=== PATIENT | male | born 1930 | race Caucasian/White ===

== ENCOUNTER 2017-04-28 07:02 | Day surgery (SDC) | payer OTHER ==
[2017-04-28 07:48] VITALS: BMI 20.7
[2017-04-28] MEDS ORDERED: PROPOFOL 20 ML ONE ×3 (07:51)
[2017-04-28] MEDS ORDERED: LIDOCAINE HCL 2% (20ML MULTI-DOSE VIAL) NR ONE (07:51)
[2017-04-28] MEDS ORDERED: ePHEDrine SULFATE 50 MG/1 ML AMPULE ONE (07:51)
[2017-04-28 09:51] VITALS: TEMP 98
[2017-04-28 10:27] VITALS: BP 150/63; PULSE 67
--- NOTE | 2017-05-01 16:04 | PATH ---
Surgical Pathology Report Patient Name: MOHINDER ARREDONDO [facility]. Rec. #: [id number] /Age/Gender: 1930 (Age: 86) / M Account: [id number] Location: U-ENDOSCOPY Taken: 04/28/2017 Received: 04/28/2017 Reported: 05/01/2017 Physicians: Mary Morley M.D. 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 DUODENUM, SECOND PORTION AND DUODENAL BULB, BIOPSY: DUODENAL MUCOSA WITHOUT SIGNIFICANT PATHOLOGIC FINDINGS. B. STOMACH, ANTRUM, BIOPSY: GASTRIC ANTRAL MUCOSA WITH MILD CHRONIC GASTRITIS. IMMUNOHISTOCHEMICAL STAIN FOR H. PYLORI IS NEGATIVE. C. DISTAL ESOPHAGUS, BIOPSY: SQUAMOUS MUCOSA WITH MARKED ACUTE ESOPHAGITIS AND REACTIVE CHANGES IN A BACKGROUND OF REFLUX TYPE CHANGES. GMS FUNGAL STAIN IS NEGATIVE. D. DESCENDING COLON, POLYP, BIOPSY: TUBULAR ADENOMA. E. PROXIMAL TRANSVERSE COLON, BIOPSY: INVASIVE ADENOCARCINOMA, MODERATELY DIFFERENTIATED. SEE COMMENT. F. RECTUM, POLYP, BIOPSY: TUBULAR ADENOMA. Comment: Additional studies for Mismatch repair proteins (MMR) are pending and will be reported separately as an addendum. Findings discussed with Dr. Morley. Electronically Signed Charley Cruz M.D. Addendum Reported: 05/03/2017 Addendum Diagnosis Immunohistochemical stains for MisMatch Repair Protein Analysis performed at [facility] in [place], [place] ([id number]) and interpreted at [facility] show the following: RESULTS: HMLH-1 LOSS OF NUCLEAR EXPRESSION HMSH-2 INTACT NUCLEAR EXPRESSION HMSH-6 INTACT NUCLEAR EXPRESSION PMS2 LOSS OF NUCLEAR EXPRESSION INTERPRETATION: Loss of nuclear expression of MLH1 and PMS2. Additional test for BRAF mutation pending and findings will be reported separately as an addendum. Charley Cruz M.D. Gross Description A. Received in formalin, labeled "biopsy second portion of duodenum and duodenal bulb" are 2 carrillo, irregular portions of soft tissue measuring 0.2 and 0.3 cm. in greatest dimension. The specimens are submitted in toto in one cassette. B. Received in formalin, labeled "biopsy antrum" are 3 carrillo, irregular portions of soft tissue ranging from 0.1-0.3 cm. in greatest dimension. The specimens are submitted in toto in one cassette. C. Received in formalin, labeled "biopsy distal esophagus" are 4 carrillo, irregular portions of soft tissue ranging from 0.1-0.3 cm. in greatest dimension. The specimens are submitted in toto in one cassette. D. Received in formalin, labeled "polyp descending colon" is a carrillo, irregular portion of soft tissue measuring 0.5 cm. in greatest dimension. The specimen is submitted in toto in one cassette. E. Received in formalin, labeled "biopsy proximal transverse colon cancer" are 6 carrillo, irregular portions of soft tissue ranging from 0.2-0.3 cm. in greatest dimension. The specimens are submitted in toto in one cassette. F. Received in formalin, labeled "polyp rectum" is a carrillo, irregular portion of soft tissue measuring 0.4 cm. in greatest dimension. The specimen is submitted in toto in one cassette. 04/28/2017 saudi04/28/2017
== END 2017-04-28 10:35 | disposition home or self-care (01) ==
LOC: JASU-ENDO 07:02
PROVIDERS: ATTEND Internal Medicine Gastroenterology
PROC: 0DBP8ZX Excision of Rectum, Via Natural or Artificial Opening Endoscopic, Diagnostic (ICD-10-PCS; 2017-04-28)
PROC: 0DBL8ZX Excision of Transverse Colon, Via Natural or Artificial Opening Endoscopic, Diagnostic (ICD-10-PCS; 2017-04-28)
PROC: 3E0H8GC Introduction of Other Therapeutic Substance into Lower GI, Via Natural or Artificial Opening Endoscopic (ICD-10-PCS; 2017-04-28)
PROC: 0DB98ZX Excision of Duodenum, Via Natural or Artificial Opening Endoscopic, Diagnostic (ICD-10-PCS; 2017-04-28)
PROC: 0DB68ZX Excision of Stomach, Via Natural or Artificial Opening Endoscopic, Diagnostic (ICD-10-PCS; 2017-04-28)
PROC: 0DB48ZX Excision of Esophagogastric Junction, Via Natural or Artificial Opening Endoscopic, Diagnostic (ICD-10-PCS; 2017-04-28)
PROC: 0DBM8ZX Excision of Descending Colon, Via Natural or Artificial Opening Endoscopic, Diagnostic (ICD-10-PCS; principal; 2017-04-28 08:00)
DX: C18.4 Malignant neoplasm of transverse colon (principal); D12.4 Benign neoplasm of descending colon; D12.8 Benign neoplasm of rectum; K57.30 Diverticulosis of large intestine without perforation or abscess without bleeding; K64.8 Other hemorrhoids; K40.90 Unilateral inguinal hernia, without obstruction or gangrene, not specified as recurrent; K29.50 Unspecified chronic gastritis without bleeding; K21.0 Gastro-esophageal reflux disease with esophagitis; K44.9 Diaphragmatic hernia without obstruction or gangrene; K22.70 Barrett's esophagus without dysplasia; K22.2 Esophageal obstruction
CPT/HCPCS: 88305-TC; 88342-TC

== ENCOUNTER 2017-07-31 08:24 | Inpatient (IN) | payer OTHER ==
[2017-07-31 08:38] VITALS: BMI 21.1
[2017-07-31] MEDS ORDERED: PANTOPRAZOLE SODIUM 40 MG in SODIUM CHLORIDE 100 ML IVPB ONE (08:40)
[2017-07-31] MEDS ORDERED: SODIUM CHLORIDE 500 ML IV STA (08:40)
--- NOTE | 2017-07-31 08:40 | PDOC ---
History of Present Illness - General Chief Complaint: Vomiting Blood Stated Complaint: VOMITING BLOOD Time Seen by Provider: 07/31/17 08:39 - History of Present Illness Initial Comments: 07/31/17 09:13 Mr. Colorado is an 86 yo male w/ pmh of colon cancer s/p resection 2 months ago and BPH who presents c/o a 1 day history of vomiting dark liquid. Per daughter who is with him this began last night - they delayed presentation as he did not want to come in initially. He reports vague abdominal pain last night although he currently feels improved without nausea. He has vomited several times last night and this morning. Patient has been in his usual state of health although daughter reports he has had increasing weakness over the last few months. The patient denies chest pain, shortness of breath, headache and dizziness. Denies fever, chills, diarrhea and constipation. Denies dysuria, frequency, urgency and hematuria. Allergies: ASA; NSAIDS Past History - Past Medical History Allergies/Adverse Reactions: Allergies Allergy/AdvReac Type Severity Reaction Status Date / Time aspirin Allergy Verified 02/04/15 16:33 NSAIDS (Non-Steroidal AdvReac Severe Verified 04/28/17 07:57 Anti-Inflamma Home Medications: Ambulatory Orders Atorvastatin Ca [Lipitor -] 10 mg PO DAILY 02/04/15 Ascorbate Calcium [Vitamin C] 500 mg PO DAILY 04/28/17 Cholecalciferol (Vitamin D3) [Vitamin D3 -] 400 unit PO DAILY 04/28/17 Nena 2 each PO PRN PRN 04/28/17 Mag Carb/Aluminum Hydrox/Algin [Gaviscon Liquid] 355 ml PO Q4H PRN #0 oral.susp 04/28/17 Multivitamin with Iron [Multivitamins with Iron] 1 tab PO DAILY 04/28/17 Ondansetron [Zofran -] 4 mg PO PRN PRN 04/28/17 Pantoprazole Sodium [Protonix -] 40 mg PO DAILY #30 tablet.ec 04/28/17 Polyethylene Glycol 3350 [Miralax 255 gm Btl] 17 gm PO DAILY #1 bottle 04/28/17 Vitafusion Gummies 1 each PO PRN 04/28/17 Metoclopramide HCl [Reglan -] 10 mg PO DAILY 07/31/17 Anemia: No Asthma: No Cancer: No Cardiac Disorders: Yes (H/O LEFT BBB) CVA: No COPD: No CHF: No Dementia: No Diabetes: No GI Disorders: Yes (DIVERTICULOSIS, COLON POLYPS/ADENOMA) Disorders: Yes (BPH) HTN: No Hypercholesterolemia: Yes Liver Disease: No Seizures: No Thyroid Disease: No - Surgical History Abdominal Surgery: No Appendectomy: No Cardiac Surgery: No Cholecystectomy: No Lung Surgery: No Neurologic Surgery: No Orthopedic Surgery: Yes (LAMENECTOMY/DISCECTOMY) - Suicide/Smoking/Psychosocial Hx Smoking History: Never smoked Have you smoked in the past 12 months: No If you are a former smoker, when did you quit?: 50 YEARS Information on smoking cessation initiated: No Hx Alcohol Use: No Drug/Substance Use Hx: No Substance Use Type: None Hx Substance Use Treatment: No Review of Systems - Review of Systems Comments:: 07/31/17 09:22 GENERAL/CONSTITUTIONAL: No fever or chills. No weakness. HEAD, EYES, EARS, NOSE AND THROAT: No change in vision. No ear pain or discharge. No sore throat. CARDIOVASCULAR: No chest pain or shortness of breath RESPIRATORY: No cough, wheezing, or hemoptysis. GASTROINTESTINAL: +Nausea with multiple episodes of vomiting dark liquid/blood. No diarrhea or constipation. GENITOURINARY: No dysuria, frequency, or change in urination. MUSCULOSKELETAL: No joint or muscle swelling or pain. No neck or back pain. SKIN: No rash NEUROLOGIC: No headache, vertigo, loss of consciousness, or change in strength/ sensation. ENDOCRINE: No increased thirst. No abnormal weight change HEMATOLOGIC/LYMPHATIC: No anemia, easy bleeding, or history of blood clots. ALLERGIC/IMMUNOLOGIC: No hives or skin allergy. *Physical Exam - Vital Signs Last Vital Signs Temp Pulse Resp BP Pulse Ox 98.5 F 103 H 16 116/85 93 L 07/31/17 08:34 07/31/17 08:34 07/31/17 08:34 07/31/17 08:34 07/31/17 08:34 - Physical Exam Comments: 07/31/17 09:23 GENERAL: Awake, alert, and fully oriented, in no acute distress. Gomez catheter in place. HEAD: No signs of trauma, normocephalic, atraumatic EYES: PERRLA, EOMI, sclera anicteric, conjunctiva clear ENT: +Black scant coffee ground like material noted to back of throat. Auricles normal inspection, hearing grossly normal, nares patent, oropharynx clear without exudates. Moist mucosa NECK: Normal ROM, supple, no lymphadenopathy, JVD, or masses LUNGS: No distress, speaks full sentences, clear to auscultation bilaterally HEART: Regular rate and rhythm, normal S1 and S2, no murmurs, rubs or gallops, peripheral pulses normal and equal bilaterally. ABDOMEN: Soft, nontender, normoactive bowel sounds. No guarding, no rebound. No masses EXTREMITIES: Normal inspection, Normal range of motion, no edema. No clubbing or cyanosis. NEUROLOGICAL: Cranial nerves II through XII grossly intact. Normal speech, normal gait, no focal sensorimotor deficits SKIN: Warm, Dry, normal turgor, no rashes or lesions noted. ED Treatment Course - LABORATORY CBC & Chemistry Diagram: 07/31/17 09:05 07/31/17 09:05 Medical Decision Making - Medical Decision Making 07/31/17 09:24 Mr. Colorado is an 86 yo male w/ known history of colon cancer and BPH who presents with nausea and coffee ground emesis. Fecal occult blood positive. GI bleed protocol started. 07/31/17 10:05 GI Consulted (Peyman). Patient's lactate noted to be elevated to 2.4. 1L NS given. 07/31/17 10:[address] Morley who recommends admission for further workup with fluid resuscitation only. Discussed H/H of 8.9/26.4 and will hold off on transfusion as patient is currently stable. Patient placed on protonix drip and admitted to Dr. Potter for further care. *DC/Admit/Observation/Transfer Diagnosis at time of Disposition: GI bleed Qualifiers: GI bleed type/associated pathology: unspecified gastrointestinal hemorrhage type Qualified Code(s): K92.2 - Gastrointestinal hemorrhage, unspecified - Discharge Dispostion Admit: Yes - Referrals - Patient Instructions - Post Discharge Activity
[2017-07-31] MEDS ORDERED: ONDANSETRON 4 MG/2 ML VIAL IVPUSH ONE (08:50)
[2017-07-31 09:16] LABS: HEMATOCRIT 26.4 % (35.4-49); HEMOGLOBIN 8.9 GM/dL (11.7-16.9); MCH 30.3 pg (25.7-33.7); MCHC 33.6 g/dl (32.0-35.9); MEAN PLT VOLUME 7.5 fl (7.5-11.1); PLATELET COUNT 318 K/MM3 (134-434); RBC 2.94 M/mm3 (4.00-5.60); RDW 20.3 % (11.9-15.9); WHITE BLOOD COUNT 8.3 K/mm3 (4.0-10.0)
[2017-07-31 09:27] LABS: INR 1.31 (0.82-1.09); PROTHROMBIN TIME (PATIENT) 14.8 SEC (9.98-11.88)
[2017-07-31] MEDS ORDERED: ONDANSETRON 4 MG/2 ML VIAL ONE (09:27)
[2017-07-31] MEDS ORDERED: PANTOPRAZOLE SODIUM 40 MG VIAL ONE (09:27)
[2017-07-31] MEDS ORDERED: ACETAMINOPHEN 1000 MG/100 ML VIAL (NON FORMULARY) IVPB ONE (09:27)
[2017-07-31] MEDS ORDERED: ACETAMINOPHEN INJECTION 100 ML IVPB ONE (09:27)
[2017-07-31 09:34] LABS: VENOUS PC02 35.9 mmHg (38-52); VENOUS PH 7.42 (7.32-7.42); VENOUS PO2 28.4 mmHg (28-48)
[2017-07-31 09:38] LABS: ALBUMIN 2.2 g/dl (3.4-5.0); ALK PHOS 521 U/L (45-117); ANION GAP 11 (8-16); BILIRUBIN,TOTAL 1.3 mg/dL (0.2-1.0); BLOOD UREA NITROGEN 49 mg/dL (7-18); CALCIUM 8.3 mg/dL (8.5-10.1); CHLORIDE 95 mmol/L (98-107); CO2 21 mmol/L (21-32); CREATININE 1.9 mg/dL (0.7-1.3); GLUCOSE,RANDOM 87 mg/dL (74-106); SGPT/ALT 41 U/L (12-78); SODIUM 127 mmol/L (136-145)
[2017-07-31 09:39] LABS: POTASSIUM 5.3 mmol/L (3.5-5.1); SGOT/AST 188 U/L (15-37)
[2017-07-31] MEDS ORDERED: PT OWN MED DRAWER 7, Y5N ONE (09:43)
[2017-07-31] MEDS ORDERED: SODIUM CHLORIDE 1,000 ML IV STA (10:09)
[2017-07-31] MEDS: PANTOPRAZOLE SODIUM 80 MG in SODIUM CHLORIDE 100 ML IVPB SCH ×4 (10:10→20:10)
[2017-07-31 10:30] LABS: URINE APPEARANCE TURBID; URINE BILIRUBIN NEGATIVE (<2.0 mg/dL); URINE BLOOD 1+ (NEGATIVE); URINE COLOR YELLOW; URINE GLUCOSE (UA) NEGATIVE (NEGATIVE); URINE KETONE TRACE (NEGATIVE); URINE LEUK ESTERASE TRACE (NEGATIVE); URINE NITRITE NEGATIVE (NEGATIVE); URINE PROTEIN NEGATIVE (NEGATIVE); URINE UROBILINOGEN 4.0 E.U/dl mg/dL (0.2-1.0)
[2017-07-31 10:32] LABS: ANISOCYTOSIS 1+; PLATELET ESTIMATE NORMAL; TARGET CELLS 1+
--- NOTE | 2017-07-31 11:18 | PDOC ---
Attending Attestation - HPI HPI: The patient is an 86 year old male who is accompanied by his daughter, with significant past medical history of colon cancer s/p resection 2 months, Diverticulosis, Colon Polyps/Adenoma and BPH who presents to the emergency department complaining of vomiting dark liquid since yesterday. The patients daughter reports the patient had approximately 10 episodes of emesis yesterday. The patient reports abdominal pain since last night, but endorses no current symptoms of nausea. Patients daughter reports additional episodes of vomiting this morning. Patients daughter reports increasing generalized weakness for the last few months. The patient denies chest pain, shortness of breath, headache and dizziness. Denies fever, chills, diarrhea and constipation. Denies dysuria, frequency, urgency and hematuria. Allergies: ASA; NSAIDS Social history: No reported cigarette, alcohol, or drug use. - Physicial Exam PE: Vitals: Triage Vital signs reviewed General Appearance: +Thin. +Cachectic. Head: Atraumatic, normocephalic Neck: Supple;No Nuchal rigidity Chest Wall: Nontender Cardiac: Regular rate and rhythm, no murmurs, no rubs, no gallops, Lungs: Clear to auscultation bilateral, good air movement bilaterally, Abdomen: Soft, nondistended, normal bowel sounds, nontender to palpation Rectal: Exam deferred Extremities: Full range of motion to all extremities, no cyanosis, clubbing, or edema Skin: Warm and dry, no rashes or lesions, no petechiae Psych: normal mood, normal affect - Medical Decision Making The patient is an 86 year old male who is accompanied by his daughter, with significant past medical history of colon cancer s/p resection 2 months, Diverticulosis, Colon Polyps/Adenoma and BPH who presents to the emergency department complaining of vomiting dark liquid since yesterday. Plan: -lab -Consult with Dr. Morley <Kwame Gutierrez - Last Filed: 07/31/17 13:58> - Resident Resident Name: Michael Pearson - ED Attending Attestation I have performed the following: I have examined & evaluated the patient, The case was reviewed & discussed with the resident, I agree w/resident's findings & plan, Exceptions are as noted - Medical Decision Making 07/31/17 13:56 86 years old with multiple episodes of dark emesis and melanotic stool Hemodynamically stable H&H stable gastroenterology Dr. Morley Aware We'll admit to medicine for further management. <Jamaal Tao - Last Filed: 07/31/17 14:55> Heart Score/ECG Review - ECG Impressions Comment:: 07/31/17 13:52 EKG performed at 8:39 AM demonstrates sinus rhythm at 100 bpm DE interval 180, QRS 118, QTC 461 low-voltage QRS no ST elevations or T-wave inversions in leads V5 V6, incomplete left bundle-branch block. Interpreted by me <Jamaal Tao - Last Filed: 07/31/17 14:55> Attestations - Attestations Documentation prepared by Kwame Gutierrez, acting as medical program specialist for Jamaal Tao MD. <Kwame Gutierrez - Last Filed: 07/31/17 13:58>
[2017-07-31 11:44] LABS: EPI CELLS RARE /HPF (FEW); URIC ACID CRYSTALS MANY /hpf (NONE SEEN); URINE HYALINE CAST 2 /lpf; URINE MUCUS RARE
--- NOTE | 2017-07-31 12:10 | CON.GI ---
Consult Consult Specialty:: Gastroenterology Referred by:: Dr Munguia Reason for Consultation:: Vomiting - History of Present Illness Chief Complaint: Repeated vomiting and acid reflux History of Present Illness: 86M comes to the ER c/o repeated vomiting and severe acid reflux that has caused inability to eat and hoarseness. He reports that the vomitus is dark as are his stools but denies wilner hematemesis. After a CT scan suggested a mass in the transverse colon he underwent an EGD and a colonoscopy with me on . The colonoscopy revealed an obstructing circumferential adenocarcinoma in the proximal transverse colon and led to the removal of adenomatous descending colon and rectal polyps. EGD suggested Jackson's esophagus but was not substantiated by pathology. He underwent right hemicolectomy with cholecystectomy, resection of the greater curvature of the stomach and partial omentectomy for invasion of the tumor into these areas by DR. Fritz Rico and Dr. Bassem Ghosh at [facility] on 05/11/17. One of twenty lymph nodes were positive. He was seen by an oncologist who did not advised chemotherapy at this age. He returned for hematemesis but neither Ed nor his daughter believe that he had an EGD at that time. His 07/27/17 CT scan reveals multiple liver and spleen metastases as well as anterior abdominal wall and mesenteric necrotic nodes. 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 Green light laser of prostate 2014 - Alcohol/Substance Use Hx Alcohol Use: No History of Substance Use: reports: None - Smoking History Smoking history: Never smoked Have you smoked in the past 12 months: No If you are a former smoker, when did you quit?: 50 YEARS - Social History Usual Living Arrangement: With Child ADL: Family Assistance Place of : [place] Home Medications - Allergies Allergies/Adverse Reactions: Allergies Allergy/AdvReac Type Severity Reaction Status Date / Time aspirin Allergy Verified 02/04/15 16:33 NSAIDS (Non-Steroidal AdvReac Severe Verified 04/28/17 07:57 Anti-Inflamma - Home Medications Home Medications: Ambulatory Orders Atorvastatin Ca [Lipitor -] 10 mg PO DAILY 02/04/15 Ascorbate Calcium [Vitamin C] 500 mg PO DAILY 04/28/17 Cholecalciferol (Vitamin D3) [Vitamin D3 -] 400 unit PO DAILY 04/28/17 Nena 2 each PO PRN PRN 04/28/17 Mag Carb/Aluminum Hydrox/Algin [Gaviscon Liquid] 355 ml PO Q4H PRN #0 oral.susp 04/28/17 Multivitamin with Iron [Multivitamins with Iron] 1 tab PO DAILY 04/28/17 Ondansetron [Zofran -] 4 mg PO PRN PRN 04/28/17 Pantoprazole Sodium [Protonix -] 40 mg PO DAILY #30 tablet.ec 04/28/17 Polyethylene Glycol 3350 [Miralax 255 gm Btl] 17 gm PO DAILY #1 bottle 04/28/17 Vitafusion Gummies 1 each PO PRN 04/28/17 Metoclopramide HCl [Reglan -] 10 mg PO DAILY 07/31/17 Family Disease History - Family Disease History Family Disease History: Heart Disease: Father ( 75 congestive heart failure) , Other: Mother ( 82 OMS) Review of Systems - Review of Systems Constitutional: reports: Loss of Appetite, Unintentional Wgt. Loss, Weakness Eyes: reports: No Symptoms HENT: reports: Other (hoarseness) Neck: reports: No Symptoms Cardiovascular: reports: No Symptoms Respiratory: reports: No Symptoms Gastrointestinal: reports: No Symptoms (Acid reflux), Vomiting Neurological: reports: No Symptoms Physical Exam-GI Vital Signs: Vital Signs Temperature 100.5 F H 07/31/17 09:22 Pulse Rate 72 07/31/17 09:22 Respiratory Rate 16 07/31/17 09:22 Blood Pressure 134/78 07/31/17 09:22 O2 Sat by Pulse Oximetry (%) 93 L 07/31/17 08:34 Laboratory Tests 07/31/17 07/31/17 07/31/17 09:05 09:05 09:05 WBC 8.3 Hgb 8.9 L Plt Count 318 Lactic Acid 2.4 H* AST 188 H Alkaline Phosphatase 521 H Albumin 2.2 L Constitutional: Yes: Anxious, Thin Eyes: Yes: Conjunctiva Clear HENT: Yes: Atraumatic Neck: Yes: Trachea Midline Cardiovascular: Yes: Regular Rate and Rhythm, Tachycardia Respiratory: Yes: CTA Bilaterally Gastrointestinal Inspection: Yes: Scars (healed vertical upper midline incisions ,) ...Auscultate: Yes: Hypoactive Bowel Sounds ...Palpate: Yes: Mass (palpable mass right interior periumbilical region) ...Percussion: Yes: Tympanitic ...Rectal Exam: Yes: Guaiac Positive, Sphincter Tone Normal (dark formed strongly guiaic positive stool) Edema: No Neurological: Yes: Alert Labs: CBC, BMP 07/31/17 09:05 07/31/17 09:05 INR, PTT INR 1.31 (0.82-1.09) H 07/31/17 09:05 Imaging - Results Cat Scan: Report Reviewed (Rosa Agudelo Name: MOHINDER ARREDONDO DEPARTMENT OF RADIOLOGY Phys: Jeff Munguia MD : 1930 Age: 86 Sex: M [facility] Acct: [id number] Loc: [facility] [address] [facility] Exam Date: 07/27/17 Status: REG REF [place] [id number] Unit Number: [id number] EXAM#: TYPE/ EXAM: RESULT: CT/ABDOMEN PELVIS CT WITH CONTR CT/CHEST CT WITH CONTRAST INDICATION: Liver disease. History of colon carcinoma. TECHNIQUE: 1. CT scan of the chest following the intravenous administration of Omnipaque 350 [address]. 2.CT scan of the abdomen and pelvis following the oral administration of contrast and the intravenous administration of Omnipaque 350 contrast. Contrast: Approximately 95 mL of intravenous Omnipaque 350. COMPARISON: 04/21/2017 CT chest, abdomen and pelvis. FINDINGS: Chest - The large central airways in the tracheobronchial tree are patent with no discrete endobronchial nodularity. There are no new pulmonary nodules to suggest metastasis. Mild scarring in the anterior basal segment of the right lower lobe and right middle lobe is unchanged. There is mild subpleural scarring in the anterior basal segment of the left lower lobe. The lungs are otherwise clear. There is no pleural effusion or pneumothorax. The chest wall and axillary regions are unremarkable. There are no pathologically enlarged mediastinal or hilar lymph nodes by CT size criteria. No evidence of mediastinal solid mass or fluid collection. The heart is normal size. There is no pericardial effusion. There is mild coronary artery calcific atherosclerosis. The thoracic aorta and main pulmonary arteries are normal caliber. Abdomen/pelvis - There has been interval enlargement of the liver with development of nodular contour and innumerable metastatic lesions throughout the entire liver, the largest of which is located in segment 2 measuring 6.5 x 5.0 cm. There is a small volume of perihepatic fluid. There are multiple enlarged greg hepatic lymph nodes, new since prior. The gallbladder is not visualized and may be surgically absent. There is no evidence of biliary ductal dilatation. The pancreas is diffusely atrophic. There is a 3.0 x 2.0 cm necrotic caleb mass insinuated between the pancreatic tail and splenic hilum. There has been interval development of a 2.0 x 2.2 cm rounded hypoattenuating mass in the inferior spleen which is suspicious for metastasis. There is also a new wedge-shaped area of hypoattenuation in the anterior, inferior spleen which is likely an infarct. There is no adrenal gland mass. The kidneys are normal size with symmetric cortical enhancement. There is no hydronephrosis. Bilateral renal cysts are unchanged in size. Subcentimeter cortical hypoattenuating lesions in the upper pole of the left kidney are also unchanged in size, likely cysts. Normal caliber abdominal aorta. There has been interval postsurgical changes related to right hemicolectomy. There is no bowel obstruction. There is no definite bowel wall thickening. There is descending and sigmoid diverticulosis with no evidence of diverticulitis There has been interval development of a 3.0 x 2.5 cm inhomogeneously enhancing midline intraperitoneal lesion, inseparable from adjacent small bowel loop (image 90 of series 7). This may be a necrotic node or intraperitoneal implant. There is a small volume of free fluid in the right upper quadrant and pelvis. There is no free intraperitoneal air. There is no drainable collection within the abdomen or pelvis. A Gomez catheter balloon is visualized within a collapsed urinary bladder. The urinary bladder wall cannot be evaluated due to underdistention. The prostate gland is not enlarged. There is a very small left inguinal hernia containing fat only. There has been interval development of a inhomogeneously enhancing mass in the midline infraumbilical anterior abdominal wall which measures approximately 2.0 x 3.0 cm, inseparable from the rectus abdominis musculature. There is diffuse body wall edema. Bones - No acute fracture or aggressive appearing lesions in the visualized bones. CT is not sensitive in detecting osseous metastasis. There is lumbar spondylosis and degenerative changes in the hips and sacroiliac joints. IMPRESSION: 1. Status post right hemicolectomy. Interval development of extensive metastatic disease within the abdomen, including innumerable hepatic metastasis, probable isolated splenic metastasis with adjacent area of infarction, as well as mesenteric and anterior abdominal wall necrotic caleb masses versus implants. 2. No evidence of metastasis within the chest. 3. Appropriately positioned Gomez catheter within a decompressed urinary bladder. 4. Please refer to the report above for other findings. Reported By: Sandra Fulton DO 07/29/17 1534 Jeff Munguia Technologist: Larry Connelly Transcribed Date/Time: 1534 Tractor Engine Mechanic: Sandra Fulton DO Printed Date/Time: By: Signed by: Sandra Fulton Signed on: 29-Jul-2017 15:35) Problem List - Problems (1) Vomiting Assessment/Plan: Given his Hb of 8.9 I suspect that Ed's vomiting and reflux are more likely reflective of a gastric outlet or small bowel obstruction due to tumor than to a GI bleed but he needs to be followed with serial Hcts. A PPI drip will be started empirically. I will order an FUA to start. If bleeding ensues then an EGD may prove necessary. I informed Ed and his daughter that the CT scan reveals recurrence of his tumor extensively. I told him that he may need an NG tube to relieve his vomiting. Further recommendations will be made based on his clinical course. I await a return call from Dr. Fritz Rico to see what workup was done during his last admission. Code(s): R11.10 - VOMITING, UNSPECIFIED (2) Acid reflux Code(s): K21.9 - GASTRO-ESOPHAGEAL REFLUX DISEASE WITHOUT ESOPHAGITIS (3) Colon cancer metastasized to liver Code(s): C18.9 - MALIGNANT NEOPLASM OF COLON, UNSPECIFIED; C78.7 - SECONDARY MALIG NEOPLASM OF LIVER AND INTRAHEPATIC BILE DUCT (4) GI bleed Code(s): K92.2 - GASTROINTESTINAL HEMORRHAGE, UNSPECIFIED Qualifiers: GI bleed type/associated pathology: unspecified gastrointestinal hemorrhage type Qualified Code(s): K92.2 - Gastrointestinal hemorrhage, unspecified
[2017-07-31] MEDS ORDERED: DEXTROSE 5%-0.45% SALINE 1,000 ML IV SCH (13:00)
[2017-07-31] MEDS: DEXTROSE 5%-NORMAL SALINE 1,000 ML IV SCH (13:06)
[2017-07-31] MEDS ORDERED: ACETAMINOPHEN 325 MG TABLET (FP) PO PRN (13:06)
--- NOTE | 2017-07-31 13:12 | HP ---
Admitting History and Physical - Primary Care Physician PCP: Jeff Munguia - Admission Chief Complaint: I'm throwin up History of Present Illness: Mr Colorado is a pleasant 86 year old male who comes in with very dark emesis. He is very hoarse from throwing up so most history is from his daughter at the bedside. She says he has a history of colon cancer s/p resection. Last week he began to have weakness and emesis, at that time the emesis looked like undigested food. He underwent CT scan at that time and came home. Over the weekend he began to have decreased intake and his emesis became very dark. She says it was black, but no coffee grounds or bright red blood. He also began to develop a cough that was productive of the same material. His bowel movements at this time turned dark black, he did not have bright red blood. He says the bowel movements were formed. He has fatigue and weakness to the point that he required a hospital bed at home. He denies fevers, chills, lightheadedness, dizziness, passing out, chest pain, abdominal pain, difficulty or pain on urination, or leg swelling. He is having shortness of breath that began with the emesis and coughing. 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 [facility] [place] Diverticulosis, GERD Renal/: Yes: BPH - Past Surgical History Past Surgical History: Yes: Cataract Removal (bilateral), Colectomy (partial), Laminectomy (1988 lumbar laminectomy) - Smoking History Smoking history: Never smoked Have you smoked in the past 12 months: No If you are a former smoker, when did you quit?: 50 YEARS - Alcohol/Substance Use Hx Alcohol Use: No History of Substance Use: reports: None - Social History Usual Living Arrangement: Yes: With Child ADL: Family Assistance History of Recent Travel: No Home Medications - Allergies Allergies/Adverse Reactions: Allergies Allergy/AdvReac Type Severity Reaction Status Date / Time aspirin Allergy Verified 02/04/15 16:33 NSAIDS (Non-Steroidal AdvReac Severe Verified 04/28/17 07:57 Anti-Inflamma - Home Medications Home Medications: Ambulatory Orders Atorvastatin Ca [Lipitor -] 10 mg PO DAILY 02/04/15 Ascorbate Calcium [Vitamin C] 500 mg PO DAILY 04/28/17 Cholecalciferol (Vitamin D3) [Vitamin D3 -] 400 unit PO DAILY 04/28/17 Nena 2 each PO PRN PRN 04/28/17 Mag Carb/Aluminum Hydrox/Algin [Gaviscon Liquid] 355 ml PO Q4H PRN #0 oral.susp 04/28/17 Multivitamin with Iron [Multivitamins with Iron] 1 tab PO DAILY 04/28/17 Ondansetron [Zofran -] 4 mg PO PRN PRN 04/28/17 Pantoprazole Sodium [Protonix -] 40 mg PO DAILY #30 tablet.ec 04/28/17 Polyethylene Glycol 3350 [Miralax 255 gm Btl] 17 gm PO DAILY #1 bottle 04/28/17 Vitafusion Gummies 1 each PO PRN 04/28/17 Metoclopramide HCl [Reglan -] 10 mg PO DAILY 07/31/17 Family Disease History - Family Disease History Family Disease History: Heart Disease: Father ( 75 congestive heart failure) , Other: Mother ( 82 OMS) Review of Systems Findings/Remarks: Full review of systems obtained, as per HPI and otherwise negative Physical Examination Vital Signs: Vital Signs Temperature 36.9 C 07/31/17 12:36 Pulse Rate 94 H 07/31/17 12:36 Respiratory Rate 16 07/31/17 12:36 Blood Pressure 123/57 07/31/17 12:36 O2 Sat by Pulse Oximetry (%) 96 07/31/17 12:36 Constitutional: Yes: No Distress, Calm, Pallor Eyes: Yes: Conjunctiva Clear, EOM Intact, PERRL Cardiovascular: Yes: Tachycardia. No: Gallop, Murmur, Rub Respiratory: Yes: Regular, Cough (productive), Rhonchi (diffuse). No: CTA Bilaterally, Rales, Tachypnea, Wheezes Gastrointestinal: Yes: Normal Bowel Sounds, Soft. No: Distention, Tenderness Extremities: Yes: WNL Edema: No Labs: CBC, BMP 07/31/17 09:05 07/31/17 09:05 Imaging - Results Chest X-ray: Report Reviewed, Image Reviewed Problem List - Problems (1) GI bleed Assessment/Plan: -patient presents with a GI bleed -appreciate GI assistance -admit to telemetry since tachycardic -continue protonix gtt, started in ED -check cbc this afternoon -IVF -Dr Morley note says might be obstruction and may need NGT Code(s): K92.2 - GASTROINTESTINAL HEMORRHAGE, UNSPECIFIED Qualifiers: GI bleed type/associated pathology: unspecified gastrointestinal hemorrhage type Qualified Code(s): K92.2 - Gastrointestinal hemorrhage, unspecified (2) Aspiration pneumonia Assessment/Plan: -suspect patient also with aspiration pneumonia -has fevers, also infiltrate on chest x-ray -start unasyn -monitor for improvement Code(s): J69.0 - PNEUMONITIS DUE TO INHALATION OF FOOD AND VOMIT (3) Acute blood loss anemia Assessment/Plan: -suspect patient will have lower h/h once hydrated -monitor, transfuse as necessary Code(s): D62 - ACUTE POSTHEMORRHAGIC ANEMIA (4) AILYN (acute kidney injury) Assessment/Plan: -secondary to dehydration from decreased intake and vomiting -hydrate with IVF -may need blood transfusion Code(s): N17.9 - ACUTE KIDNEY FAILURE, UNSPECIFIED (5) Hyperkalemia Assessment/Plan: -secondary to AILYN -hydrate with IVF -monitor on telemetry -will not give kayexalate secondary to abdominal pathology -if remains elevated, will need renal consult -recheck this afternoon and tomorrow Code(s): E87.5 - HYPERKALEMIA (6) Hyponatremia Assessment/Plan: -hydrate with IVF Code(s): E87.1 - HYPO-OSMOLALITY AND HYPONATREMIA (7) Colon cancer metastasized to liver Assessment/Plan: -noted on CT scan Code(s): C18.9 - MALIGNANT NEOPLASM OF COLON, UNSPECIFIED; C78.7 - SECONDARY MALIG NEOPLASM OF LIVER AND INTRAHEPATIC BILE DUCT
[2017-07-31] MEDS ORDERED: AMPICILLIN NA/SULBACTAM NA 3 GM in SODIUM CHLORIDE 100 ML IVPB SCH (15:00)
[2017-07-31 16:28] LABS: HEMATOCRIT 19.2 % (35.4-49); MCH 30.3 pg (25.7-33.7); MCHC 33.4 g/dl (32.0-35.9); MEAN CELL VOLUME 90.9 fl (80-96); MEAN PLT VOLUME 7.2 fl (7.5-11.1); PLATELET COUNT 256 K/MM3 (134-434); RBC 2.11 M/mm3 (4.00-5.60); RDW 20.4 % (11.9-15.9); WHITE BLOOD COUNT 6.9 K/mm3 (4.0-10.0)
[2017-07-31 16:36] LABS: HEMOGLOBIN 6.4 GM/dL (11.7-16.9)
[2017-07-31 17:30] LABS: BASO % 0.5 % (0-2.0); HEMATOCRIT 21.1 % (35.4-49); HEMOGLOBIN 7.2 GM/dL (11.7-16.9); LYMPH % 9.8 % (8-40); MCH 30.4 pg (25.7-33.7); MCHC 34.1 g/dl (32.0-35.9); MEAN CELL VOLUME 89.1 fl (80-96); MEAN PLT VOLUME 7.2 fl (7.5-11.1); MONO % 4.3 % (3.8-10.2); NEUT % 85.4 % (42.8-82.8); PLATELET COUNT 281 K/MM3 (134-434); RBC 2.37 M/mm3 (4.00-5.60); RDW 20.7 % (11.9-15.9); WHITE BLOOD COUNT 8.3 K/mm3 (4.0-10.0)
[2017-07-31] MEDS ORDERED: FUROSEMIDE 40 MG/4 ML INJECTABLE VIAL IVPUSH ONE (17:46)
[2017-07-31 17:58] LABS: ALBUMIN 1.9 g/dl (3.4-5.0); ANION GAP 11 (8-16); BLOOD UREA NITROGEN 48 mg/dL (7-18); CALCIUM 7.6 mg/dL (8.5-10.1); CHLORIDE 102 mmol/L (98-107); CO2 19 mmol/L (21-32); CREATININE 1.7 mg/dL (0.7-1.3); GLUCOSE,RANDOM 145 mg/dL (74-106); POTASSIUM 4.4 mmol/L (3.5-5.1); SGOT/AST 163 U/L (15-37); SGPT/ALT 34 U/L (12-78); SODIUM 132 mmol/L (136-145)
[2017-07-31 18:00] LABS: ALK PHOS 423 U/L (45-117); BILIRUBIN,TOTAL 1.1 mg/dL (0.2-1.0)
[2017-07-31] MEDS ORDERED: AMPICILLIN NA/SULBACTAM NA 3 GM in SODIUM CHLORIDE 100 ML IVPB ONE (18:30)
[2017-07-31] MEDS: AMPICILLIN NA/SULBACTAM NA 3 GM in SODIUM CHLORIDE 100 ML IVPB SCH (19:07)
--- NOTE | 2017-07-31 21:26 | PN ---
Progress Note (short form) - Note Progress Note: GI Consult addendum: please note that on physical exam Ed's liver is enlarged, nodular and hard and extends 5 fb's below the RCM. I spoke with is daughter Elin about an hour ago and told her that we will need to undertake an EGD tomorrow to evaluate the source of bleeding. The GI series was cancelled. He has received blood. Problem List - Problems (1) Vomiting Code(s): R11.10 - VOMITING, UNSPECIFIED (2) Acid reflux Code(s): K21.9 - GASTRO-ESOPHAGEAL REFLUX DISEASE WITHOUT ESOPHAGITIS (3) Colon cancer metastasized to liver Code(s): C18.9 - MALIGNANT NEOPLASM OF COLON, UNSPECIFIED; C78.7 - SECONDARY MALIG NEOPLASM OF LIVER AND INTRAHEPATIC BILE DUCT (4) GI bleed Code(s): K92.2 - GASTROINTESTINAL HEMORRHAGE, UNSPECIFIED Qualifiers: GI bleed type/associated pathology: unspecified gastrointestinal hemorrhage type Qualified Code(s): K92.2 - Gastrointestinal hemorrhage, unspecified
[2017-07-31] MEDS ORDERED: FUROSEMIDE 40 MG/4 ML INJECTABLE VIAL ONE (22:22)
--- NOTE | 2017-07-31 23:48 | EKG ---
Test Reason : Blood Pressure : / mmHG Vent. Rate : 100 BPM Atrial Rate : 100 BPM P-R Int : 180 ms QRS Dur : 118 ms QT Int : 358 ms P-R-T Axes : 000 021 191 degrees QTc Int : 461 ms SINUS RHYTHM WITH PREMATURE ATRIAL COMPLEXES LOW VOLTAGE QRS INCOMPLETE LEFT BUNDLE BRANCH BLOCK PROLONGED QT ABNORMAL ECG NO PREVIOUS ECGS AVAILABLE Confirmed by ZOHREH MOY MD ([id number]) on 07/31/2017 11:48:30 PM Referred By: Confirmed By:ZOHREH MOY MD
[2017-08-01] MEDS: AMPICILLIN NA/SULBACTAM NA 3 GM in SODIUM CHLORIDE 100 ML IVPB SCH (06:34)
[2017-08-01 07:58] LABS: INR 1.3 (0.82-1.09); PROTHROMBIN TIME (PATIENT) 14.7 SEC (9.98-11.88)
[2017-08-01 08:14] LABS: BASO % 0.2 % (0-2.0); EOS % 0.3 % (0-4.5); HEMOGLOBIN 10.5 GM/dL (11.7-16.9); LYMPH % 6.7 % (8-40); MCH 31.2 pg (25.7-33.7); MEAN CELL VOLUME 89.1 fl (80-96); MEAN PLT VOLUME 7.6 fl (7.5-11.1); MONO % 4.8 % (3.8-10.2); PLATELET COUNT 271 K/MM3 (134-434); RBC 3.37 M/mm3 (4.00-5.60); RDW 18.8 % (11.9-15.9); WHITE BLOOD COUNT 9.3 K/mm3 (4.0-10.0)
[2017-08-01 08:32] LABS: CHLORIDE 105 mmol/L (98-107); POTASSIUM 4.2 mmol/L (3.5-5.1); SODIUM 133 mmol/L (136-145)
[2017-08-01 08:44] LABS: ALBUMIN 1.9 g/dl (3.4-5.0); ALK PHOS 434 U/L (45-117); AMYLASE 29 U/L (25-115); ANION GAP 8 (8-16); BILIRUBIN,TOTAL 4.1 mg/dL (0.2-1.0); BLOOD UREA NITROGEN 42 mg/dL (7-18); CALCIUM 7.6 mg/dL (8.5-10.1); CO2 20 mmol/L (21-32); CREATININE 1.4 mg/dL (0.7-1.3); GAMMA GLUTAMYL TRANSPEPTIDASE 380 U/L (5-85); GLUCOSE,RANDOM 91 mg/dL (74-106); LIPASE 43 U/L (73-393); MAGNESIUM 1.8 mg/dL (1.8-2.4); PHOSPHOROUS 2.1 mg/dL (2.5-4.9); SGOT/AST 192 U/L (15-37); SGPT/ALT 34 U/L (12-78); TOT PROT 4.8 g/dl (6.4-8.2)
[2017-08-01] MEDS: PANTOPRAZOLE SODIUM 80 MG in SODIUM CHLORIDE 100 ML IVPB SCH ×2 (11:29→18:01)
[2017-08-01] MEDS: DEXTROSE 5%-NORMAL SALINE 1,000 ML IV SCH ×2 (11:29→16:43)
--- NOTE | 2017-08-01 14:49 | PN ---
Progress Note, Physician Chief Complaint: Mr Colorado says he is feeling about the same. However having less emesis, is still coughing up dark mucous. No cp or sob. Still with some nausea. - Current Medication List Current Medications: Active Medications Acetaminophen (Tylenol -) 650 mg PO Q4H PRN PRN Reason: PAIN LEVEL 1-5 Pantoprazole Sodium 80 mg/ (Sodium Chloride) 100 mls @ 10 mls/hr IVPB Q10H TRISTAN PRN Reason: 8 MG/HR Last Admin: 08/01/17 11:29 Dose: Not Given Dextrose/Sodium Chloride (D5-Ns -) 1,000 mls @ 125 mls/hr IV ASDIR [facility] Last Admin: 08/01/17 11:29 Dose: 125 mls/hr Ampicillin Sodium/Sulbactam (Sodium 3 gm/ Sodium Chloride) 100 mls @ 200 mls/ hr IVPB Q12H [facility] Last Admin: 08/01/17 06:34 Dose: 200 mls/hr - Objective Vital Signs: Vital Signs Temperature 36.9 C 08/01/17 10:00 Pulse Rate 79 08/01/17 10:00 Respiratory Rate 20 08/01/17 10:00 Blood Pressure 112/44 08/01/17 10:00 O2 Sat by Pulse Oximetry (%) 95 08/01/17 09:00 Constitutional: Yes: No Distress, Calm, Thin Cardiovascular: Yes: Regular Rate and Rhythm. No: Gallop, Murmur, Rub Respiratory: Yes: Regular, CTA Bilaterally. No: Rales, Rhonchi, Wheezes Gastrointestinal: Yes: Normal Bowel Sounds, Soft. No: Distention, Tenderness Extremities: Yes: WNL Edema: No Labs: CBC, BMP 08/01/17 07:00 08/01/17 07:00 INR, PTT INR 1.30 (0.82-1.09) H 08/01/17 07:00 Problem List - Problems (1) GI bleed Code(s): K92.2 - GASTROINTESTINAL HEMORRHAGE, UNSPECIFIED Qualifiers: GI bleed type/associated pathology: unspecified gastrointestinal hemorrhage type Qualified Code(s): K92.2 - Gastrointestinal hemorrhage, unspecified (2) Aspiration pneumonia Code(s): J69.0 - PNEUMONITIS DUE TO INHALATION OF FOOD AND VOMIT (3) Acute blood loss anemia Code(s): D62 - ACUTE POSTHEMORRHAGIC ANEMIA (4) AILYN (acute kidney injury) Code(s): N17.9 - ACUTE KIDNEY FAILURE, UNSPECIFIED (5) Hyperkalemia Code(s): E87.5 - HYPERKALEMIA (6) Hyponatremia Code(s): E87.1 - HYPO-OSMOLALITY AND HYPONATREMIA (7) Colon cancer metastasized to liver Code(s): C18.9 - MALIGNANT NEOPLASM OF COLON, UNSPECIFIED; C78.7 - SECONDARY MALIG NEOPLASM OF LIVER AND INTRAHEPATIC BILE DUCT Assessment/Plan (1) GI bleed Assessment/Plan: -s/p 2 units with proper response -planning for EGD today -continue protonix gtt Code(s): K92.2 - GASTROINTESTINAL HEMORRHAGE, UNSPECIFIED Qualifiers: GI bleed type/associated pathology: unspecified gastrointestinal hemorrhage type Qualified Code(s): K92.2 - Gastrointestinal hemorrhage, unspecified (2) Aspiration pneumonia Assessment/Plan: -continue unasyn day 2 Code(s): J69.0 - PNEUMONITIS DUE TO INHALATION OF FOOD AND VOMIT (3) Acute blood loss anemia Assessment/Plan: -s/p transfusion 2 units as above Code(s): D62 - ACUTE POSTHEMORRHAGIC ANEMIA (4) AILYN (acute kidney injury) Assessment/Plan: -improving with hydration and transfusion Code(s): N17.9 - ACUTE KIDNEY FAILURE, UNSPECIFIED (5) Hyperkalemia Assessment/Plan: -resolved Code(s): E87.5 - HYPERKALEMIA (6) Hyponatremia Assessment/Plan: -hydrate with IVF Code(s): E87.1 - HYPO-OSMOLALITY AND HYPONATREMIA (7) Colon cancer metastasized to liver Assessment/Plan: -noted on CT scan Code(s): C18.9 - MALIGNANT NEOPLASM OF COLON, UNSPECIFIED; C78.7 - SECONDARY MALIG NEOPLASM OF LIVER AND INTRAHEPATIC BILE DUCT
--- NOTE | 2017-08-01 15:21 | PN ---
Progress Note (short form) - Note Progress Note: GI Procedure NOte: Please see scanned EGD report. The stomach was full of dark fluid but no bleeding was identified. No obstruction was seen. 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 Will give Reglan IV and rest the stomach for 48 hours. Discussed with Ed and his daughter Shanna with whom I had discussed the potential complications of irena EWGD and who signed the consent as Ed feels too feeble. He nodded his consent. Problem List - Problems (1) Vomiting Code(s): R11.10 - VOMITING, UNSPECIFIED (2) Acid reflux Code(s): K21.9 - GASTRO-ESOPHAGEAL REFLUX DISEASE WITHOUT ESOPHAGITIS (3) Colon cancer metastasized to liver Code(s): C18.9 - MALIGNANT NEOPLASM OF COLON, UNSPECIFIED; C78.7 - SECONDARY MALIG NEOPLASM OF LIVER AND INTRAHEPATIC BILE DUCT (4) GI bleed Code(s): K92.2 - GASTROINTESTINAL HEMORRHAGE, UNSPECIFIED Qualifiers: GI bleed type/associated pathology: unspecified gastrointestinal hemorrhage type Qualified Code(s): K92.2 - Gastrointestinal hemorrhage, unspecified
--- NOTE | 2017-08-01 16:43 | PN ---
Progress Note (short form) - Note Progress Note: ID Consult dictated + Urine c/s Enterococcal sp liklely contaminant/ colonizer Atelectasis L base Metastatic colorectal ca Will D/C unasyn, observe Discussed with daughter at bedside
--- NOTE | 2017-08-01 17:48 | CONS ---
DATE OF CONSULTATION: DATE OF DICTATION: 08/01/2017 HISTORY OF PRESENT ILLNESS: The patient is an 86-year-old male with metastatic colorectal cancer evaluated for positive urine culture. The patient underwent a right hemicolectomy at [facility] in April 2017 for colorectal cancer. He is now admitted to the hospital with a 1-day history of nausea and vomiting. The patient had vomited copious amounts of bilious fluid. He underwent an EGD. The stomach was full of dark fluid but no active bleeding was identified, no obstruction was seen. His symptoms were felt to be consistent with gastroparesis. He was started on IV Reglan. Cultures were obtained, and he is found to have a positive urine culture for enterococcus species. Urinalysis showed 16 white cells. At the present time, he has a Gomez catheter in place. He had reported symptoms of urinary retention since the surgery. Denies any dysuria or gross hematuria. He had 1 isolated low-grade temperature; however, otherwise has remained afebrile. His white blood cell count is within normal limits. PAST MEDICAL HISTORY: Positive for colorectal cancer status post right hemicolectomy with metastases to the liver and possibly spleen. History of BPH, diverticulosis. PAST SURGICAL HISTORY: Status post colon resection April 2017, cholecystectomy. ALLERGIES: ASPIRIN and NSAIDs. MEDICATION: Lipitor, vitamin C, Zofran, Protonix. SOCIAL HISTORY: He lives at home. He is a nonsmoker, nondrinker. SYSTEMS REVIEW: Neurologic: No loss of consciousness, seizure activity, or focal weakness. Cardiac: Negative chest pain or palpitations. Respiratory: Negative cough or sputum production. Gastrointestinal: As per HPI. Genitourinary: As per HPI. LABORATORY DATA: White count 9.3, hematocrit 30.3, platelet count 271, BUN 42, creatinine 1.4, total bilirubin 4.1, alkaline phosphatase 4, AST 192. Urinalysis 16 white cells. Urine culture growing an enterococcus species. Blood cultures negative. Chest x-ray read as possible new atelectasis and infiltrate left lower lobe. PHYSICAL EXAMINATION: General: He is awake and alert. He is weak appearing. Vital signs: Temperature 98.4, T-max 100.5, blood pressure 108/54, pulse 81 regular, respirations 18 per minute. HEENT: Sclerae mildly icteric. Cardiovascular: Heart sounds S1, S2. Respiratory: Lungs diminished breath sounds bases bilaterally. Abdomen: Soft. There is a healed surgical scar. No mass, rebound, or rigidity. Extremities: 1+ edema. IMPRESSION: 1. Positive urine culture enterococcus species, likely colonizer versus contaminant. 2. Probable atelectasis left base. 3. Metastatic colorectal cancer. Suspect positive urine culture, represents urinary tract colonization or contaminants. No clinical evidence for systemic infection. Will discontinue Unasyn and observe off antibiotic therapy. Repeat cultures for recurrent low-grade fever or elevated white blood cell count. TYRESE TOM M.D. [id number]
[2017-08-01] MEDS ORDERED: PT OWN MED DRAWER 7, Y5N ONE (17:52)
[2017-08-01] MEDS: METOCLOPRAMIDE HCL INJECTION 10 MG/2 ML VIAL IVPUSH SCH ×2 (18:00→21:45)
[2017-08-01 18:18] LABS: BASO % 0.2 % (0-2.0); EOS % 0.4 % (0-4.5); HEMATOCRIT 29.2 % (35.4-49); HEMOGLOBIN 10.1 GM/dL (11.7-16.9); LYMPH % 8.2 % (8-40); MCH 30.9 pg (25.7-33.7); MCHC 34.7 g/dl (32.0-35.9); MEAN CELL VOLUME 88.9 fl (80-96); MEAN PLT VOLUME 7.6 fl (7.5-11.1); MONO % 5.3 % (3.8-10.2); NEUT % 85.9 % (42.8-82.8); PLATELET COUNT 301 K/MM3 (134-434); RBC 3.29 M/mm3 (4.00-5.60); RDW 19.4 % (11.9-15.9); WHITE BLOOD COUNT 9.4 K/mm3 (4.0-10.0)
[2017-08-02] MEDS ORDERED: ACETAMINOPHEN 325 MG TABLET (FP) PO PRN (00:12)
[2017-08-02] MEDS ORDERED: FUROSEMIDE 40 MG/4 ML INJECTABLE VIAL IVPUSH ONE (00:12)
[2017-08-02] MEDS: METOCLOPRAMIDE HCL INJECTION 10 MG/2 ML VIAL IVPUSH SCH ×4 (03:42→21:34)
[2017-08-02] MEDS: DEXTROSE 5%-NORMAL SALINE 1,000 ML IV SCH ×3 (03:42→16:54)
[2017-08-02] MEDS: PANTOPRAZOLE SODIUM 80 MG in SODIUM CHLORIDE 100 ML IVPB SCH ×2 (03:54→15:11)
[2017-08-02 06:26] LABS: BASO % 0.5 % (0-2.0); EOS % 0.7 % (0-4.5); HEMATOCRIT 29.5 % (35.4-49); HEMOGLOBIN 10.2 GM/dL (11.7-16.9); LYMPH % 7.3 % (8-40); MCH 31.1 pg (25.7-33.7); MCHC 34.4 g/dl (32.0-35.9); MEAN CELL VOLUME 90.3 fl (80-96); MEAN PLT VOLUME 7.7 fl (7.5-11.1); MONO % 5.4 % (3.8-10.2); NEUT % 86.1 % (42.8-82.8); PLATELET COUNT 313 K/MM3 (134-434); RBC 3.27 M/mm3 (4.00-5.60); RDW 20.3 % (11.9-15.9); WHITE BLOOD COUNT 9.8 K/mm3 (4.0-10.0)
[2017-08-02 06:45] LABS: ANION GAP 7 (8-16); BLOOD UREA NITROGEN 30 mg/dL (7-18); CALCIUM 7.3 mg/dL (8.5-10.1); CHLORIDE 113 mmol/L (98-107); CO2 20 mmol/L (21-32); GLUCOSE,RANDOM 104 mg/dL (74-106); MAGNESIUM 1.8 mg/dL (1.8-2.4); POTASSIUM 3.8 mmol/L (3.5-5.1); SODIUM 140 mmol/L (136-145)
[2017-08-02 06:47] LABS: CREATININE 1.1 mg/dL (0.7-1.3); PHOSPHOROUS 1.8 mg/dL (2.5-4.9)
[2017-08-02 09:52] LABS: URINE APPEARANCE TURBID; URINE BILIRUBIN NEGATIVE (<2.0 mg/dL); URINE BLOOD 3+ (NEGATIVE); URINE GLUCOSE (UA) NEGATIVE (NEGATIVE); URINE KETONE NEGATIVE (NEGATIVE); URINE NITRITE NEGATIVE (NEGATIVE); URINE PROTEIN NEGATIVE (NEGATIVE)
[2017-08-02 09:56] LABS: URINE COLOR DK YELLOW; URINE LEUK ESTERASE 2+ (NEGATIVE)
[2017-08-02 10:47] LABS: URINE MUCUS MANY
[2017-08-02 11:28] LABS: URIC ACID CRYSTALS MANY /hpf (NONE SEEN)
[2017-08-02 11:29] LABS: CALCIUM OXALATE CRYSTALS FEW /hpf (NONE SEEN)
--- NOTE | 2017-08-02 12:22 | PN ---
GI Progress Note Subjective: GI NOte: Ed has stopped vomiting. NO overt bleeding. He is now jaundiced with acute rise in bilirubin to 4. He is lethargic but responsive. I discussed the situation in detail with both of his daughters who are present. I explained that Terry's jaundice most likely reflects tumor destruction but also that he may alternatively have obstructive jaundice by a malignant node compressing the CBD which would need an MRCP to detect and and ERCP with stenting if documented. We discussed the advanced nature of his tumor and the futility of such efforts. I cancelled the MRCP and will honor his and their DNR wishes. - Objective Vital Signs: Vital Signs Temperature 97 F L 08/02/17 09:00 Pulse Rate 90 08/02/17 09:00 Respiratory Rate 18 08/02/17 09:00 Blood Pressure 124/50 08/02/17 09:00 O2 Sat by Pulse Oximetry (%) 96 08/02/17 09:00 Laboratory Tests 07/31/17 08/01/17 08/01/17 17:20 07:00 17:30 Hgb 10.1 L Total Bilirubin 1.1 H 4.1 H D GGT 380 H AST 163 H 192 H ALT 34 34 Alkaline Phosphatase 423 H 434 H 08/02/17 06:00 Hgb 10.2 L Total Bilirubin GGT AST ALT Alkaline Phosphatase Constitutional: Other (Lethargic but arousable) Gastrointestinal Inspection: Yes: Distention ...Palpate: Yes: Soft, Other (nontender) ...Percussion: Yes: Tympanitic Labs: CBC, BMP 08/02/17 06:00 08/02/17 06:00 INR, PTT INR 1.30 (0.82-1.09) H 08/01/17 07:00 Problem List - Problems (1) Vomiting Assessment/Plan: Gastroparesis as part of Lyndon's syndrome. Will continue GI rest and Reglan but allow ice chips Code(s): R11.10 - VOMITING, UNSPECIFIED (2) Acid reflux Code(s): K21.9 - GASTRO-ESOPHAGEAL REFLUX DISEASE WITHOUT ESOPHAGITIS (3) Colon cancer metastasized to liver Assessment/Plan: Hepatic failure due to tumor invasion and likely lapsing into hepatic coma. No interventions planned given DNR. Code(s): C18.9 - MALIGNANT NEOPLASM OF COLON, UNSPECIFIED; C78.7 - SECONDARY MALIG NEOPLASM OF LIVER AND INTRAHEPATIC BILE DUCT (4) GI bleed Code(s): K92.2 - GASTROINTESTINAL HEMORRHAGE, UNSPECIFIED Qualifiers: GI bleed type/associated pathology: unspecified gastrointestinal hemorrhage type Qualified Code(s): K92.2 - Gastrointestinal hemorrhage, unspecified
--- NOTE | 2017-08-02 16:07 | PN ---
Progress Note, Physician Chief Complaint: Mr Colorado says he is comfortable today. Wants to go on hospice and no further procedures. - Current Medication List Current Medications: Active Medications Acetaminophen (Tylenol -) 650 mg PO Q4H PRN PRN Reason: PAIN LEVEL 1-5 Dextrose/Sodium Chloride (D5-Ns -) 1,000 mls @ 125 mls/hr IV ASDIR TRISTAN Last Admin: 08/02/17 09:27 Dose: 125 mls/hr Pantoprazole Sodium 80 mg/ (Sodium Chloride) 100 mls @ 10 mls/hr IVPB Q10H TRISTAN PRN Reason: 8 MG/HR Last Admin: 08/02/17 15:11 Dose: 10 mls/hr Metoclopramide HCl (Reglan Injection -) 10 mg IVPUSH Q6H-IV TRISTAN Last Admin: 08/02/17 14:13 Dose: 10 mg - Objective Vital Signs: Vital Signs Temperature 36.6 C 08/02/17 14:00 Pulse Rate 82 08/02/17 14:00 Respiratory Rate 18 08/02/17 14:00 Blood Pressure 118/56 08/02/17 14:00 O2 Sat by Pulse Oximetry (%) 96 08/02/17 09:00 Constitutional: Yes: No Distress, Calm, Thin Cardiovascular: Yes: Regular Rate and Rhythm. No: Gallop, Murmur, Rub Respiratory: Yes: Regular, CTA Bilaterally, On Nasal O2. No: Rales, Rhonchi, Wheezes Gastrointestinal: Yes: Hypoactive Bowel Sounds. No: Distention, Tenderness Extremities: Yes: WNL Edema: No Labs: CBC, BMP 08/02/17 06:00 08/02/17 06:00 INR, PTT INR 1.30 (0.82-1.09) H 08/01/17 07:00 Problem List - Problems (1) GI bleed Code(s): K92.2 - GASTROINTESTINAL HEMORRHAGE, UNSPECIFIED Qualifiers: GI bleed type/associated pathology: unspecified gastrointestinal hemorrhage type Qualified Code(s): K92.2 - Gastrointestinal hemorrhage, unspecified (2) Aspiration pneumonia Code(s): J69.0 - PNEUMONITIS DUE TO INHALATION OF FOOD AND VOMIT (3) Acute blood loss anemia Code(s): D62 - ACUTE POSTHEMORRHAGIC ANEMIA (4) AILYN (acute kidney injury) Code(s): N17.9 - ACUTE KIDNEY FAILURE, UNSPECIFIED (5) Hyperkalemia Code(s): E87.5 - HYPERKALEMIA (6) Hyponatremia Code(s): E87.1 - HYPO-OSMOLALITY AND HYPONATREMIA (7) Colon cancer metastasized to liver Code(s): C18.9 - MALIGNANT NEOPLASM OF COLON, UNSPECIFIED; C78.7 - SECONDARY MALIG NEOPLASM OF LIVER AND INTRAHEPATIC BILE DUCT Assessment/Plan (1) GI bleed Code(s): K92.2 - GASTROINTESTINAL HEMORRHAGE, UNSPECIFIED Qualifiers: GI bleed type/associated pathology: unspecified gastrointestinal hemorrhage type Qualified Code(s): K92.2 - Gastrointestinal hemorrhage, unspecified (2) Aspiration pneumonia Code(s): J69.0 - PNEUMONITIS DUE TO INHALATION OF FOOD AND VOMIT (3) Acute blood loss anemia Code(s): D62 - ACUTE POSTHEMORRHAGIC ANEMIA (4) AILYN (acute kidney injury) Code(s): N17.9 - ACUTE KIDNEY FAILURE, UNSPECIFIED (5) Hyperkalemia Code(s): E87.5 - HYPERKALEMIA (6) Hyponatremia Code(s): E87.1 - HYPO-OSMOLALITY AND HYPONATREMIA (7) Colon cancer metastasized to liver Code(s): C18.9 - MALIGNANT NEOPLASM OF COLON, UNSPECIFIED; C78.7 - SECONDARY MALIG NEOPLASM OF LIVER AND INTRAHEPATIC BILE DUCT Plan -spoke with patient and family -desires hospice -because of complexity, patient is inappropriate for home hospice -however patient and family uncomfortable with transfer to [place] -will recheck labs tomorrow to see if LFTs are worsening -also daily evaluation to assess if is imminent -if acutely worsens, will change to inpatient hospice -if not, will continue to discuss [place] -continue IVF for comfort currently as patient awake but needs to be npo -discontinue telemetry
[2017-08-03] MEDS: DEXTROSE 5%-NORMAL SALINE 1,000 ML IV SCH ×3 (00:53→17:03)
[2017-08-03] MEDS: PANTOPRAZOLE SODIUM 80 MG in SODIUM CHLORIDE 100 ML IVPB SCH ×3 (00:53→20:57)
[2017-08-03] MEDS: METOCLOPRAMIDE HCL INJECTION 10 MG/2 ML VIAL IVPUSH SCH ×4 (03:04→20:57)
[2017-08-03] MEDS ORDERED: ACETAMINOPHEN 325 MG TABLET (FP) PO PRN (03:33)
[2017-08-03 07:59] LABS: BASO % 0.5 % (0-2.0); EOS % 0.6 % (0-4.5); HEMATOCRIT 30.1 % (35.4-49); MCH 30.6 pg (25.7-33.7); MCHC 33.4 g/dl (32.0-35.9); MEAN CELL VOLUME 91.9 fl (80-96); MEAN PLT VOLUME 7.3 fl (7.5-11.1); NEUT % 82.9 % (42.8-82.8); PLATELET COUNT 296 K/MM3 (134-434); RBC 3.28 M/mm3 (4.00-5.60); RDW 20.7 % (11.9-15.9); WHITE BLOOD COUNT 11.3 K/mm3 (4.0-10.0)
[2017-08-03 08:22] LABS: ALBUMIN 1.6 g/dl (3.4-5.0); ALK PHOS 380 U/L (45-117); ANION GAP 6 (8-16); BILIRUBIN,DIRECT 1.6 mg/dL (0.0-0.2); BILIRUBIN,TOTAL 1.8 mg/dL (0.2-1.0); BLOOD UREA NITROGEN 21 mg/dL (7-18); CALCIUM 7.4 mg/dL (8.5-10.1); CHLORIDE 118 mmol/L (98-107); CO2 21 mmol/L (21-32); CREATININE 1.1 mg/dL (0.7-1.3); GLUCOSE,RANDOM 109 mg/dL (74-106); PHOSPHOROUS 1.8 mg/dL (2.5-4.9); POTASSIUM 3.6 mmol/L (3.5-5.1); SGOT/AST 129 U/L (15-37); SGPT/ALT 32 U/L (12-78); SODIUM 145 mmol/L (136-145); TOT PROT 4.6 g/dl (6.4-8.2)
[2017-08-03] MEDS ORDERED: PT OWN MED DRAWER 7, Y5N ONE (10:38)
--- NOTE | 2017-08-03 16:46 | PN ---
Progress Note, Physician Chief Complaint: Mr Colorado says he is comfortable today. Still with productive cough with thick green sputum, happens more in the morning. No cp or sob. Nausea controlled. - Current Medication List Current Medications: Active Medications Acetaminophen (Tylenol -) 650 mg PO Q4H PRN PRN Reason: PAIN LEVEL 1-5 Dextrose/Sodium Chloride (D5-Ns -) 1,000 mls @ 125 mls/hr IV ASDIR TRISTAN Last Admin: 08/03/17 09:00 Dose: 125 mls/hr Pantoprazole Sodium 80 mg/ (Sodium Chloride) 100 mls @ 10 mls/hr IVPB Q10H TRISTAN PRN Reason: 8 MG/HR Last Admin: 08/03/17 11:28 Dose: 10 mls/hr Metoclopramide HCl (Reglan Injection -) 10 mg IVPUSH Q6H-IV TRISTAN Last Admin: 08/03/17 15:08 Dose: 10 mg - Objective Vital Signs: Vital Signs Temperature 36.3 C L 08/03/17 14:25 Pulse Rate 93 H 08/03/17 14:23 Respiratory Rate 18 08/03/17 14:23 Blood Pressure 128/87 08/03/17 14:23 O2 Sat by Pulse Oximetry (%) 97 08/03/17 09:00 Constitutional: Yes: No Distress, Calm, Thin Cardiovascular: Yes: Regular Rate and Rhythm. No: Gallop, Murmur, Rub Respiratory: Yes: Regular, On Nasal O2, Rhonchi (slight). No: CTA Bilaterally, Rales, Wheezes Gastrointestinal: Yes: Normal Bowel Sounds, Soft. No: Distention, Tenderness Extremities: Yes: WNL Edema: No Labs: CBC, BMP 08/03/17 06:30 08/03/17 06:30 INR, PTT INR 1.30 (0.82-1.09) H 08/01/17 07:00 Problem List - Problems (1) GI bleed Code(s): K92.2 - GASTROINTESTINAL HEMORRHAGE, UNSPECIFIED Qualifiers: GI bleed type/associated pathology: unspecified gastrointestinal hemorrhage type Qualified Code(s): K92.2 - Gastrointestinal hemorrhage, unspecified (2) Aspiration pneumonia Code(s): J69.0 - PNEUMONITIS DUE TO INHALATION OF FOOD AND VOMIT (3) Acute blood loss anemia Code(s): D62 - ACUTE POSTHEMORRHAGIC ANEMIA (4) AILYN (acute kidney injury) Code(s): N17.9 - ACUTE KIDNEY FAILURE, UNSPECIFIED (5) Hyperkalemia Code(s): E87.5 - HYPERKALEMIA (6) Hyponatremia Code(s): E87.1 - HYPO-OSMOLALITY AND HYPONATREMIA (7) Colon cancer metastasized to liver Code(s): C18.9 - MALIGNANT NEOPLASM OF COLON, UNSPECIFIED; C78.7 - SECONDARY MALIG NEOPLASM OF LIVER AND INTRAHEPATIC BILE DUCT Assessment/Plan (1) GI bleed Code(s): K92.2 - GASTROINTESTINAL HEMORRHAGE, UNSPECIFIED Qualifiers: GI bleed type/associated pathology: unspecified gastrointestinal hemorrhage type Qualified Code(s): K92.2 - Gastrointestinal hemorrhage, unspecified (2) Aspiration pneumonia Code(s): J69.0 - PNEUMONITIS DUE TO INHALATION OF FOOD AND VOMIT (3) Acute blood loss anemia Code(s): D62 - ACUTE POSTHEMORRHAGIC ANEMIA (4) AILYN (acute kidney injury) Code(s): N17.9 - ACUTE KIDNEY FAILURE, UNSPECIFIED (5) Hyperkalemia Code(s): E87.5 - HYPERKALEMIA (6) Hyponatremia Code(s): E87.1 - HYPO-OSMOLALITY AND HYPONATREMIA (7) Colon cancer metastasized to liver Code(s): C18.9 - MALIGNANT NEOPLASM OF COLON, UNSPECIFIED; C78.7 - SECONDARY MALIG NEOPLASM OF LIVER AND INTRAHEPATIC BILE DUCT Plan -will minimize labs, check 3 times a week if necessary -will check ammonia level on next lab draw to evaluate for hepatic encephalopathy -continue IVF for comfort since patient is still awake and would become dehydrated and uncomfortable -continue IV protonix -continue reglan -if still with thick sputum, will trial mucinex -continue current management
--- NOTE | 2017-08-03 22:33 | PN ---
GI Progress Note Subjective: GI NOte: Ed tells me that he had no vomiting today. He recognizes me and responds appropriately. His liver is improved and the jaundice likely reflected hemolyzed transfused blood. august . 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 Will try liquids in the AM and continue IV Reglan Code(s): R11.10 - VOMITING, UNSPECIFIED (2) Acid reflux Code(s): K21.9 - GASTRO-ESOPHAGEAL REFLUX DISEASE WITHOUT ESOPHAGITIS (3) Colon cancer metastasized to liver Code(s): C18.9 - MALIGNANT NEOPLASM OF COLON, UNSPECIFIED; C78.7 - SECONDARY MALIG NEOPLASM OF LIVER AND INTRAHEPATIC BILE DUCT (4) GI bleed Code(s): K92.2 - GASTROINTESTINAL HEMORRHAGE, UNSPECIFIED Qualifiers: GI bleed type/associated pathology: unspecified gastrointestinal hemorrhage type Qualified Code(s): K92.2 - Gastrointestinal hemorrhage, unspecified
[2017-08-04] MEDS: DEXTROSE 5%-NORMAL SALINE 1,000 ML IV SCH ×2 (02:06→09:28)
[2017-08-04] MEDS: METOCLOPRAMIDE HCL INJECTION 10 MG/2 ML VIAL IVPUSH SCH ×5 (03:06→21:23)
[2017-08-04] MEDS: PANTOPRAZOLE SODIUM 80 MG in SODIUM CHLORIDE 100 ML IVPB SCH ×2 (09:26→17:53)
--- NOTE | 2017-08-04 14:32 | PN ---
GI Progress Note Subjective: GI NOte: Multiple family members at the bedside. Vomited after liquids. It appears self limited but will stop meals. Explained that liver function has improved and was likely due to hemolysis of transfused blood. At the request of our clinical coordinators I discussed the appropriateness of [facility] for Ed. Ed wants to stay here and so do his daughters. He continues to need IV fluids and IV Reglan. - Objective Vital Signs: Vital Signs Temperature 97.9 F 08/04/17 09:00 Pulse Rate 88 08/04/17 09:00 Respiratory Rate 18 08/04/17 09:00 Blood Pressure 129/58 08/04/17 09:00 O2 Sat by Pulse Oximetry (%) 97 08/04/17 09:00 Constitutional: Calm, Other (awake and coherent) ...Auscultate: Yes: Hypoactive Bowel Sounds ...Palpate: Yes: Soft, Other (nontender) Labs: CBC, BMP 08/03/17 06:30 08/03/17 06:30 INR, PTT INR 1.30 (0.82-1.09) H 08/01/17 07:00 Problem List - Problems (1) Vomiting Assessment/Plan: Gastroparesis as part of Angélica's syndrome. Continue IV Reglan and fluids. DNR in effect. NPO except ice chips. Code(s): R11.10 - VOMITING, UNSPECIFIED (2) Acid reflux Code(s): K21.9 - GASTRO-ESOPHAGEAL REFLUX DISEASE WITHOUT ESOPHAGITIS (3) Colon cancer metastasized to liver Code(s): C18.9 - MALIGNANT NEOPLASM OF COLON, UNSPECIFIED; C78.7 - SECONDARY MALIG NEOPLASM OF LIVER AND INTRAHEPATIC BILE DUCT (4) GI bleed Code(s): K92.2 - GASTROINTESTINAL HEMORRHAGE, UNSPECIFIED Qualifiers: GI bleed type/associated pathology: unspecified gastrointestinal hemorrhage type Qualified Code(s): K92.2 - Gastrointestinal hemorrhage, unspecified
[2017-08-04] MEDS ORDERED: DEXTROSE 5%-0.45% SALINE 1,000 ML IV SCH (14:45)
--- NOTE | 2017-08-04 14:55 | PN ---
Physical Exam: SUBJECTIVE: Patient seen and examined. Patient appears comfortable. He vomited after clear liquids. He is requesting something to help him sleep at night. OBJECTIVE: Vital Signs Period Temp Pulse Resp BP Sys/[place]illo Pulse Ox Last 24 Hr 97.4 F-98.2 F 88-94 18-20 119-129/53-88 97-97 GENERAL: The patient is awake, alert, and in no acute distress. LUNGS: Breath sounds equal, clear to auscultation bilaterally, no wheezes, no crackles, no accessory muscle use. HEART: Regular rate and rhythm, S1, S2 without murmur, rub or gallop. ABDOMEN: Soft, nontender, nondistended, normoactive bowel sounds, no guarding, no rebound, no hepatosplenomegaly, no masses. EXTREMITIES: 2+ pulses, warm, well-perfused, no edema. Laboratory Results - last 24 hr 07/31/17 12:30 Blood Type A POSITIVE Antibody Screen Negative Crossmatch See Detail Active Medications Generic Name Dose Route Start Last Admin Trade Name Freq PRN Reason Stop Dose Admin Acetaminophen 650 mg 08/03/17 03:33 Tylenol - PO Q4H PRN PAIN LEVEL 1-5 Pantoprazole Sodium 80 mg/ 100 mls @ 10 mls/hr 08/03/17 11:00 08/04/17 09:26 Sodium Chloride IVPB 10 mls/hr Q10H TRISTAN Administration 8 MG/HR Dextrose/Sodium Chloride 1,000 mls @ 125 mls/hr 08/04/17 14:45 D5-1/2ns - IV ASDIR TRISTAN Metoclopramide HCl 10 mg 08/03/17 09:00 08/04/17 14:01 Reglan Injection - IVPUSH Not Given Q6H-IV TRISTAN ASSESSMENT/PLAN: 1. Acute blood loss anemia secondary to GI bleed 2. Vomiting secondary to Ang[place] syndrome - Clear liquids discontinued for now - NPO - Continue IV fluid, Reglan IV, Protonix IV 3. Aspiration pneumonia 4. Acute kidney injury - Improved 5. Hyperkalemia - Improved 6. Hyponatremia - Improved 7. Colon cancer with liver metastases - Patient accepted to [facility] and awaiting bed, however family says they do not want him to be transferred there Visit type - Emergency Visit Emergency Visit: Yes ED Registration Date: 07/31/17 Care time: The patient presented to the Emergency Department on the above date and was hospitalized for further evaluation of their emergent condition. - New Patient This patient is new to me today: Yes Date on this admission: 08/04/17 - Critical Care Critical Care patient: No - Discharge Referral Referred to [facility] Med [facility].: No
[2017-08-04] MEDS ORDERED: MIRTAZAPINE 15 MG TABLET (FP) PO SCH (22:00)
[2017-08-05] MEDS: METOCLOPRAMIDE HCL INJECTION 10 MG/2 ML VIAL IVPUSH SCH ×2 (03:09→11:24)
[2017-08-05] MEDS: PANTOPRAZOLE SODIUM 80 MG in SODIUM CHLORIDE 100 ML IVPB SCH ×2 (03:10→14:55)
[2017-08-05] MEDS ORDERED: PT OWN MED DRAWER 7, Y5N ONE (09:16)
--- NOTE | 2017-08-05 13:30 | PN ---
Progress Note (short form) - Note Progress Note: patient asleep, family at bedside. Family want inpatient hospice (patient not able to tolerate PO -vomits when trying to eat) (patient not examined by family request as to not disturb him) A/P metastatic colon cancer, endstage -for inpatient hospice
[2017-08-05] MEDS ORDERED: morphine SULFATE 4 MG/ML VIAL IVPUSH PRN (14:21)
[2017-08-05] MEDS ORDERED: METOCLOPRAMIDE HCL INJECTION 10 MG/2 ML VIAL IVPUSH PRN (15:13)
[2017-08-05] MEDS: DEXTROSE 5%-0.45% SALINE 1,000 ML IV SCH (15:50)
[2017-08-06] MEDS: DEXTROSE 5%-0.45% SALINE 1,000 ML IV SCH (06:44)
[2017-08-06] MEDS ORDERED: MORPHINE 100 MG in SODIUM CHLORIDE 98 ML IVPB SCH (10:30)
--- NOTE | 2017-08-06 10:30 | PN ---
Progress Note (short form) - Note Progress Note: Discussed further measures with family, as he appeared uncomfortable overnight. Yesterday in afternoon while discussing his wishes with family present he wished "this will all end. I can't wait until this is over". Family this morning does wish to keep him comfortable -will start morphine drip. -A/P metastatic colon cancer (end stage) comfort measures only -morphine drip to start
--- NOTE | 2017-08-06 11:48 | PN ---
GI Progress Note Subjective: GI NOte: Terminal hospice measures in effect. Fortunately no vomiting despite stopping Reglan. - Objective Vital Signs: Vital Signs Temperature 97.3 F L 08/06/17 06:00 Pulse Rate 98 H 08/06/17 06:00 Respiratory Rate 20 08/06/17 06:00 Blood Pressure 111/52 08/06/17 06:00 O2 Sat by Pulse Oximetry (%) 96 08/05/17 21:00 Constitutional: Other (Very feeble, whispering only.) Labs: CBC, BMP 08/03/17 06:30 08/03/17 06:30 INR, PTT INR 1.30 (0.82-1.09) H 08/01/17 07:00 Assessment/Plan Terminal measures in effect. Please recall us as needed. Problem List - Problems (1) Vomiting Code(s): R11.10 - VOMITING, UNSPECIFIED (2) Acid reflux Code(s): K21.9 - GASTRO-ESOPHAGEAL REFLUX DISEASE WITHOUT ESOPHAGITIS (3) Colon cancer metastasized to liver Code(s): C18.9 - MALIGNANT NEOPLASM OF COLON, UNSPECIFIED; C78.7 - SECONDARY MALIG NEOPLASM OF LIVER AND INTRAHEPATIC BILE DUCT (4) GI bleed Code(s): K92.2 - GASTROINTESTINAL HEMORRHAGE, UNSPECIFIED Qualifiers: GI bleed type/associated pathology: unspecified gastrointestinal hemorrhage type Qualified Code(s): K92.2 - Gastrointestinal hemorrhage, unspecified
[2017-08-06 14:45] VITALS: BP 111/59; PULSE 101; TEMP 100.5
--- NOTE | 2017-08-07 08:54 | HOSP ---
Physical Examination Vital Signs: Vital Signs Temperature 100.5 F H 08/06/17 14:44 Pulse Rate 101 H 08/06/17 14:44 Respiratory Rate 7 L 08/06/17 21:00 Blood Pressure 111/59 08/06/17 14:44 O2 Sat by Pulse Oximetry (%) 96 08/06/17 09:00 Labs: CBC, BMP 08/03/17 06:30 08/03/17 06:30 Hospitalist Encounter Assessment: Called by RN for patient unresponsiveness. Patient is DNR/DNI On exam the patient did not respond to verbal or physical stimuli. Absent heart and breath sounds. Absent peripheral pulses. Pupils are fixed and dilated. Patient pronounced at 08:18. Dr. Hutchison notified. Family at bedside. Visit type - Emergency Visit Emergency Visit: Yes ED Registration Date: 07/31/17 Care time: The patient presented to the Emergency Department on the above date and was hospitalized for further evaluation of their emergent condition. - New Patient This patient is new to me today: No - Critical Care Critical Care patient: No
== END 2017-08-07 10:07 | disposition expired | DRG 377 ==
LOC: JER 08:24 → JERBED 09:26 → OBSVTOIN 13:06 → J4W 08-01 02:51 → J5S 08-03 01:47
PROVIDERS: ADMIT Internal Medicine; ATTEND Internal Medicine
PROC: 30233N1 Transfusion of Nonautologous Red Blood Cells into Peripheral Vein, Percutaneous Approach (ICD-10-PCS; 2017-07-31)
PROC: 0DJ08ZZ Inspection of Upper Intestinal Tract, Via Natural or Artificial Opening Endoscopic (ICD-10-PCS; principal; 2017-08-01 13:30)
DX: K92.2 Gastrointestinal hemorrhage, unspecified (principal); J69.0 Pneumonitis due to inhalation of food and vomit; C78.7 Secondary malignant neoplasm of liver and intrahepatic bile duct; D62 Acute posthemorrhagic anemia; N17.9 Acute kidney failure, unspecified; E87.1 Hypo-osmolality and hyponatremia; C18.9 Malignant neoplasm of colon, unspecified; J98.11 Atelectasis; N40.0 Benign prostatic hyperplasia without lower urinary tract symptoms; K57.90 Diverticulosis of intestine, part unspecified, without perforation or abscess without bleeding; K63.5 Polyp of colon; E78.5 Hyperlipidemia, unspecified; I44.7 Left bundle-branch block, unspecified; R11.10 Vomiting, unspecified; E87.5 Hyperkalemia; K22.2 Esophageal obstruction; K44.9 Diaphragmatic hernia without obstruction or gangrene; K21.0 Gastro-esophageal reflux disease with esophagitis; Z66 Do not resuscitate
CPT/HCPCS: 36415; 36430; 71045-TC-FY; 74021-TC-FY; 80048; 80053; 80076; 81003; 81015; 82150; 82272; 82378; 82550; 82553; 82803; 82977; 83605; 83690; 83735; 84100; 84484; 85025; 85027; 85044; 85610; 86850; 86900; 86901; 86922; 87040; 87086; 87186; 93005; 93010; 99285-25; E0372; G0378; J0131; J7030; P9038; P9058